=== PATIENT | male | born 1975 | race Caucasian/White ===

== ENCOUNTER 2019-07-01 11:39 | Emergency (ER) | payer SELFPAY ==
[2019-07-01] MEDS ORDERED: Ketorolac 60 MG/2 ML SDV IM ONE (11:50)
[2019-07-01] MEDS ORDERED: Benzocaine 20% Topical Spray UD MUCMEM ONE (11:50)
[2019-07-01] MEDS ORDERED: Lidocaine 2% Viscous Solution 15 ML Cup PO ONE (11:50)
--- NOTE | 2019-07-01 11:50 | EDM.PDOC ---
ED HPI GENERAL MEDICAL PROBLEM - General Chief Complaint: ENT Problem Stated Complaint: RT SIDE;FACIAL PAIN Time Seen by Provider: 07/01/19 11:41 Source of Information: Reports: Patient History Limitations: Reports: No Limitations - History of Present Illness INITIAL COMMENTS - FREE TEXT/NARRATIVE: HISTORY AND PHYSICAL: History of present illness: Patient is a 44-year-old male who presents to the emergency room with complaints of right upper dental pain. He states he has had some pain to that area for a few days, last night he ate a frozen piece of chocolate and when he went to bite down he had sharp stabbing pain. He is concerned as the pain is no longer just localized to the tooth area but now radiates into the sinus area and soft palate. He has been taking Tylenol and ibuprofen without much relief, last had Tylenol this morning. Patient denies any fever, chills, headache, change in vision, syncope or near syncope. Denies any chest pain, back pain, shortness of breath or cough. Denies any GI or symptoms. Patient has been eating and drinking appropriately. Review of systems: As per history of present illness and below otherwise all systems reviewed and negative. Past medical history: As per history of present illness and as reviewed below otherwise noncontributory. Surgical history: As per history of present illness and as reviewed below otherwise noncontributory. Social history: See social history for further information Family history: As per history of present illness and as reviewed below otherwise noncontributory. Physical exam: General: Well-developed and well-nourished 44-year-old male. Alert and oriented. Nontoxic-appearing and in no acute distress. HEENT: Atraumatic, normocephalic, pupils equal and reactive bilaterally, negative for conjunctival pallor or scleral icterus, mucous membranes moist, TMs normal bilaterally, throat clear, teeth are intact, mild erythema and soft tissue swelling noted to the right posterior molar on the upper dental line. Neck supple, nontender, trachea midline. No drooling or trismus noted. No meningeal signs. No hot potato voice noted. Lungs: Clear to auscultation, breath sounds equal bilaterally, chest nontender. Heart: S1S2, regular rate and rhythm without overt murmur Abdomen: Soft, nondistended, nontender. Skin: Intact, warm, dry. No lesions or rashes noted. Extremities: Atraumatic, moves all extremities per self without difficulty or deficits, negative for cords or calf pain. Neurovascular unremarkable. Neuro: Awake, alert, oriented. Cranial nerves II through XII unremarkable. Cerebellum unremarkable. Motor and sensory unremarkable throughout. Exam nonfocal. Notes: Medication and supportive care measures were reviewed and discussed. Voices understanding and is agreeable to plan of care. Denies any further questions or concerns at this time. Diagnostics: None Therapeutics: Dental balls, Toradol Prescription: Diclofenac Impression: Dentalgia r/o abscess Plan: 1. Please take the antibiotic as prescribed. 2. Tylenol and/or ibuprofen as needed for pain management. "Tooth Balls" have been given to you; apply along the gumline every 2-3 hours as needed. Do not swallow these; external use only. 3. Follow-up with a dentist for definitive care. Return to the ED as needed and as discussed. Definitive disposition and diagnosis as appropriate pending reevaluation and review of above. Right Tooth Pain Score (Numeric/FACES): 8 - Related Data Allergies Allergy/AdvReac Type Severity Reaction Status Date / Time No Known Allergies Allergy Verified 07/01/19 11:56 Home Meds: Home Meds Acetaminophen/HYDROcodone [[place] 325-5 MG] 1 tab PO Q4H #20 tablet 07/01/19 [Rx] Amoxicillin/Clavulanate K [Augmentin 875-125 MG] 1 tab PO BID 10 Days #20 tablet 07/01/19 [Rx] ED ROS ENT - Review of Systems Review Of Systems: Comprehensive ROS is negative, except as noted in HPI. ED EXAM, ENT - Physical Exam Exam: See Below (See dictation) Course - Vital Signs Last Recorded V/S: Last Vital Signs Temp 96.9 F 07/01/19 11:51 Pulse 96 07/01/19 11:51 Resp 17 07/01/19 11:51 BP 142/88 H 07/01/19 11:51 Pulse Ox 94 L 07/01/19 11:51 - Orders/Labs/Meds Meds: Medications Discontinued Medications Generic Name Dose Route Start Last Admin Trade Name Freq PRN Reason Stop Dose Admin Benzocaine 2 each 07/01/19 11:50 07/01/19 12:05 Hurricaine One 20% MUCMEM 07/01/19 11:51 2 each ONETIME ONE Administration Ketorolac Tromethamine 60 mg 07/01/19 11:50 07/01/19 12:05 Toradol IM 07/01/19 11:51 60 mg ONETIME ONE Administration Lidocaine HCl 15 ml 07/01/19 11:50 07/01/19 12:05 Xylocaine 2% Viscous PO 07/01/19 11:51 15 ml ONETIME ONE Administration Departure - Departure Time of Disposition: 12:00 Disposition: Home, Self-Care 01 Clinical Impression: Dentalgia - Discharge Information Prescriptions: Acetaminophen/HYDROcodone [[place] 325-5 MG] 1 tab PO Q4H #20 tablet Amoxicillin/Clavulanate K [Augmentin 875-125 MG] 1 tab PO BID 10 Days #20 tablet Instructions: Acute Pain, Adult Referrals: PCP,None [Primary Care Provider] - Forms: ED Department Discharge Additional Instructions: The following information is given to patients seen in the emergency department who are being discharged to home. This information is to outline your options for follow-up care. We provide all patients seen in our emergency department with a follow-up referral. The need for follow-up, as well as the timing and circumstances, are variable depending upon the specifics of your emergency department visit. If you don't have a primary care physician on staff, we will provide you with a referral. We always advise you to contact your personal physician following an emergency department visit to inform them of the circumstance of the visit and for follow-up with them and/or the need for any referrals to a consulting specialist. The emergency department will also refer you to a specialist when appropriate. This referral assures that you have the opportunity for follow-up care with a specialist. All of these measure are taken in an effort to provide you with optimal care, which includes your follow-up. Under all circumstances we always encourage you to contact your private physician who remains a resource for coordinating your care. When calling for follow-up care, please make the office aware that this follow-up is from your recent emergency room visit. If for any reason you are refused follow-up, please contact the [facility] at and asked to speak to the emergency department charge nurse. [facility] [address] [place] [id number] [facility] [address] [place] [address] [place] [address] 1. Please take the antibiotic as prescribed. 2. Tylenol and/or ibuprofen as needed for pain management. "Tooth Balls" have been given to you; apply along the gumline every 2-3 hours as needed. Do not swallow these; external use only. 3. Follow-up with a dentist for definitive care. Return to the ED as needed and as discussed. Sepsis Event Note - Focused Exam Vital Signs: Vital Signs Temp Pulse Resp BP Pulse Ox 07/01/19 11:51 96.9 F 96 17 142/88 H 94 L Date Exam was Performed: 07/01/19 Time Exam was Performed: 12:24
== END 2019-07-01 12:24 | disposition home or self-care (01) ==
LOC: MW.ED 11:39
DX: K08.89 Other specified disorders of teeth and supporting structures (principal)
CPT/HCPCS: 96372; 99282; A9270; J1885; 99283